=== PATIENT | female | born 1990 | race Caucasian/White ===

== ENCOUNTER 2021-03-11 07:30 | Observation (INO) | payer BC ==
[~2021-03-11] VITALS: Ht 162.6 cm; Wt 68.9 kg
== END 2021-03-11 16:55 | disposition home or self-care (01) ==
LOC: SPU 07:30
PROVIDERS: ADMIT Specialist; ATTEND Specialist
DX: O41.03X0 Oligohydramnios, third trimester, not applicable or unspecified (principal); Z3A.35 35 weeks gestation of pregnancy; V49.9XXA Car occupant (driver) (passenger) injured in unspecified traffic accident, initial encounter; Y93.89 Activity, other specified; Y92.89 Other specified places as the place of occurrence of the external cause
CPT/HCPCS: 76805; G0378